=== PATIENT | male | born 1985 | race Caucasian/White ===

== ENCOUNTER 2016-10-25 11:12 | Emergency (ER) | payer SELFPAY ==
[2016-10-25] MEDS ORDERED: DIPH,PERTUSS(ACELL),TET VAC/PF 0.5 ML DISP.SYRIN IM ONE (11:40)
--- NOTE | 2016-10-25 11:50 | ED Physician Documentation ---
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 pt wiped his own pocket knife on pant leg after the bottle probe-concern re possible foriegn substance in the bottle or on the suspects cotton. there was very minimal pooling of blood approx 1 cm of the superficial lac-scratch. pt prev tet immun uncertain. ) Further Comments: yes (suspects were suspect heroin users.) - ROS CONST: no problems EYES/ENT: none CVS/RESP: none GI/: none NEURO/PSYCH: denies: headache, fainting, dizziness, tingling - PAST HX Past History: none Surgeries/Procedures: other (hand) Allergies/Adverse Reactions: Allergies Allergy/AdvReac Type Severity Reaction Status Date / Time No Known Drug Allergies Allergy Unverified 10/25/16 12:02 Home Medications: Ambulatory Orders Medication Instructions Recorded NK [NK] 10/25/16 - SOCIAL HX Smoking History: non-smoker Alcohol Use: occasionally Drug Use: none - FAMILY HX Family History: No - VITAL SIGNS Vital Signs: Vital Signs Temp Pulse Resp BP Pulse Ox 97.2 F L 64 20 119/79 97 10/25/16 11:24 10/25/16 12:35 10/25/16 12:35 10/25/16 12:35 10/25/16 12:35 - REVIEWED ASSESSMENTS Nursing Assessment Reviewed: Yes Vitals Reviewed: Yes ED Results Lab/Radiology - Lab Results Lab Results: Lab Results 10/25/16 10/25/16 10/25/16 12:20 12:20 12:00 WBC RBC Hgb Hct MCV MCH MCHC RDW Plt Count Neut % (Auto) Lymph % (Auto) [place] % (Auto) Eos % (Auto) Baso % (Auto) Neut # Lymph # [place] # Eos # Baso # Reactive Lymphs % Reactive Lymphs # Sodium 136 mmol/L mmol/L (136-145) Potassium 3.8 mmol/L mmol/L (3.5-5.0) Chloride 100 mmol/L mmol/L (98-110) Carbon Dioxide 32 mmol/L mmol/L (20-32) BUN 8 mg/dL L mg/dL (10-26) Creatinine 0.8 mg/dL mg/dL (0.4-1.5) Estimated Creat Clear 147 Est GFR ( Amer) > 60 (60 - ) Est GFR (Non-Af Amer) > 60 (60 - ) Glucose 96 mg/dL mg/dL (70-99) Calcium 9.9 mg/dL mg/dL (8.5-10.5) Total Bilirubin 0.7 mg/dL mg/dL (0.2-1.2) AST 26 U/L U/L (0-41) ALT 28 U/L U/L (0-45) Alkaline Phosphatase 54 U/L U/L (46-116) Total Protein 8.9 g/dL H g/dL (6.0-8.5) Albumin 5.0 g/dL g/dL (3.0-5.5) Urine Color Yellow (YELLOW) Urine Appearance Clear (CLEAR) Urine pH 7.0 (5.0 - 8.0) Ur Specific [place] 1.025 (1.010-1.030) Urine Protein Trace mg/dL mg/dL (NEGATIVE) Urine Ketones Negative mg/dL mg/dL (NEGATIVE) Urine Occult Blood Negative (NEGATIVE) Urine Nitrite Negative (NEGATIVE) Urine Bilirubin Negative (NEGATIVE) Urine Urobilinogen 0.2 Eu Eu (0.2-1.0) Ur Leukocyte Esterase Negative (NEGATIVE) Urine Glucose Negative mg/dL mg/dL (NEGATIVE) Opiates Screen Negative (2000 ng/mL) Oxycodone Screen Negative ng/mL ng/mL (<100) Methadone Screen Negative ng/mL ng/mL (<300) POC Urine Barbiturates Negative ng/mL ng/mL (<300) Amphetamines Screen Negative ng/mL ng/mL (<1000) POC Ur Methamphetamine Negative ng/mL ng/mL (<1000) MDMA Negative ng/mL ng/mL (<500) Benzodiazepines Screen Negative ng/mL ng/mL (<300) Cocaine Screen Negative ng/mL ng/mL (<150) Marijuana (THC) Screen Negative ng/mL ng/mL (<50) 10/25/16 12:00 WBC 6.30 K/ul K/ul (4.00-12.00) RBC 5.21 M/ul H M/ul (3.90-5.20) Hgb 16.4 g/dL g/dL (12.0-18.0) Hct 46.0 % % (37.0-53.0) MCV 88.3 fl fl (80.0-100.0) MCH 31.5 pg pg (28.0-34.0) MCHC 35.7 g/dL g/dL (30.0-36.0) RDW 12.9 % % (11.3-14.3) Plt Count 216 K/mm3 K/mm3 (130-400) Neut % (Auto) 65.7 % % (39.0-79.0) Lymph % (Auto) 23.6 % % (16.0-50.0) [place] % (Auto) 5.8 % % (0.0-11.0) Eos % (Auto) 2.5 % % (0.0-6.8) Baso % (Auto) 0.6 (0.0-1.5) Neut # 4.1 # k/uL # k/uL (1.4-7.7) Lymph # 1.5 # k/uL # k/uL (0.6-4.0) Fountain # 0.4 # k/uL # k/uL (0.0-0.9) Eos # 0.2 # k/uL # k/uL (0.0-0.6) Baso # 0.0 # k/uL # k/uL (0.0-0.5) Reactive Lymphs % 1.7 % % (0.0-5.0) Reactive Lymphs # 0.1 # k/uL # k/uL (0.0-0.8) Sodium Potassium Chloride Carbon Dioxide BUN Creatinine Estimated Creat Clear Est GFR ( Amer) Est GFR (Non-Af Amer) Glucose Calcium Total Bilirubin AST ALT Alkaline Phosphatase Total Protein Albumin Urine Color Urine Appearance Urine pH Ur Specific [place] Urine Protein Urine Ketones Urine Occult Blood Urine Nitrite Urine Bilirubin Urine Urobilinogen Ur Leukocyte Esterase Urine Glucose Opiates Screen Oxycodone Screen Methadone Screen POC Urine Barbiturates Amphetamines Screen POC Ur Methamphetamine MDMA Benzodiazepines Screen Cocaine Screen Marijuana (THC) Screen - Orders Orders: ED Orders Category Date Time Status CBC/PLATELET/DIFF Routine Lab 10/25/16 12:00 Completed CMP Routine Lab 10/25/16 12:00 Completed DRUG SCREEN URINE MEDICAL ONLY Routine Lab 10/25/16 12:20 Completed URINALYSIS Routine Lab 10/25/16 12:20 Completed Diph,Pertuss(Acell),Tet Vac/Pf [Adacel] Med 10/25/16 11:40 Discontinued 0.5 ml IM .ONCE ONE General Adult Physical Exam - PHYSICAL EXAM GENERAL APPEARANCE: no distress (except as above) EENT: eye inspection normal, no signs of dehydration RESPIRATORY: no resp distress, chest non-tender, breath sounds normal CVS: reg rate & rhythm, heart sounds normal ABDOMEN: soft, non-tender SKIN: warm/dry, normal color. No: cyanosis, diaphoresis, jaundice EXTREMITIES: non-tender, normal range of motion. No: no evidence of injury ( afore mentioned rt leg lac-cleansed betadine w/betadine dressing-tet tox) NEURO: oriented X3, motor nml, sensation nml, mood/affect nml Discharge Clincal Impression: laceration rt leg-thigh Referrals: Primary Doctor,No [Primary Care Provider] - 2 Days Home Medications: Ambulatory Orders NK [NK] 10/25/16 Condition: Good Disposition: 01 HOME, SELF-CARE Decision to Admit: NO Decision Time: 12:47
[2016-10-25 12:14] LABS: BASOPHILS % 0.6 (0.0-1.5); EOSINOPHILS % 2.5 % (0.0-6.8); MEAN CORPUSCULAR HEMOGLOBIN 31.5 pg (28.0-34.0); MEAN CORPUSCULAR VOLUME 88.3 fl (80.0-100.0); MONOCYTES % 5.8 % (0.0-11.0); NEUTROPHILS # 4.1 # k/uL (1.4-7.7)
[2016-10-25 12:23] LABS: eGFR (African) > 60; eGFR (Non-African) > 60
[2016-10-25 12:27] LABS: APPEARANCE,URINE Clear (CLEAR); COLOR,URINE Yellow (YELLOW); OCCULT BLOOD,URINE Negative (NEGATIVE); UROBILINOGEN URINE 0.2 Eu (0.2-1.0)
[2016-10-25 12:32] LABS: AMPHETAMINE NEGATIVE ng/mL (<1000); BARBITURATES NEGATIVE ng/mL (<300); CANNABINOIDS NEGATIVE ng/mL (<50); COCAINE NEGATIVE ng/mL (<150); METHAMPHETAMINE NEGATIVE ng/mL (<1000); METHYLENEDIOXYMETHAMPHETAMINE NEGATIVE ng/mL (<500)
[2016-10-25 12:37] VITALS: BP 119/79
== END 2016-10-25 12:34 | disposition home or self-care (01) ==
LOC: ED 11:12
DX: S71.111A Laceration without foreign body, right thigh, initial encounter (principal); W26.0XXA Contact with knife, initial encounter; Y93.9 Activity, unspecified; Y99.9 Unspecified external cause status
CPT/HCPCS: 36415; 80053; 80377; 81002; 85025; 90471; 90715; 99283; G0481